=== PATIENT | male | born 1975 | race Caucasian/White ===

== ENCOUNTER 2017-09-01 19:35 | Emergency (ER) | payer MEDICARE, OTHER ==
[~2017-09-01] VITALS: Ht 170.2 cm; Wt 79.4 kg
[2017-09-01 19:55] VITALS: BP 153/110
== END 2017-09-01 22:30 | disposition left against medical advice (07) ==
LOC: EDBD 19:35 → ER 19:35
DX: F41.9 Anxiety disorder, unspecified (principal); Z53.21 Procedure and treatment not carried out due to patient leaving prior to being seen by health care provider

== ENCOUNTER 2017-11-29 23:00 | Emergency (ER) | payer OTHER, MEDICARE ==
[~2017-11-29] VITALS: Ht 170.2 cm; Wt 77.1 kg
[2017-11-30] MEDS ORDERED: SODIUM CHLORIDE 0.9% 1,000 ML IVB ONE (01:37)
[2017-11-30] MEDS ORDERED: PANTOPRAZOLE 40 MG/10 ML VIAL IV ONE (01:45)
[2017-11-30] MEDS ORDERED: KETOROLAC TROMETH 30 MG/ML 1ML VIAL IV ONE (01:45)
[2017-11-30] MEDS ORDERED: ONDANSETRON HCL 4 MG/2 ML VIAL IV ONE (01:45)
[2017-11-30] MEDS ORDERED: IOHEXOL 300 MG/ML 100ML BOTTLE IJ ONE (02:01)
[2017-11-30] MEDS ORDERED: LORazepam 2MG/ML-1ML VIAL IV ONE (02:45)
[2017-11-30 03:04] LABS: Basophils # (auto) 0.1 uL; Eosinophils # (auto) 0 uL; Hemoglobin 15.8 g/dL (13.5-17.5); Monocytes # (auto) 0.6 uL
[2017-11-30 03:06] LABS: Basophils % (auto) 0.9 % (0.0-2.0); Eosinophils % (auto) 0.1 % (0.0-7.0); Hematocrit 44.9 % (41.0-53.0); Lymphocytes # (auto) 0.9 uL; Lymphocytes % (auto) 9.7 % (10.0-50.0); Mean Corpuscular Hemoglobin 36.4 pg (28.0-32.0); Mean Corpuscular Hgb Conc. 35.1 g/dL (32.0-36.0); Mean Corpuscular Volume 103.6 fL (80.0-100.0); Monocytes % (auto) 6.4 % (0.0-12.0); Neutrophils # (auto) 7.6 uL; Neutrophils % (auto) 82.9 % (37.0-80.0); Nucleated Red Blood Cells % 0.1 %; Platelet Count (auto) 174 10^3/uL (140-450); Red Blood Cells 4.34 10^6/uL (4.5-5.90); Red Cell Distribution Width 14.7 % (11.8-14.3); White Blood Cell 9.2 10^3/uL (4.4-10.8)
[2017-11-30 03:12] LABS: INR 1.11 (0.9-1.15); Partial Thromboplastin Time 26.1 sec (23.78-33.04); Prothrombin Time 11.8 sec (9.27-12.13)
[2017-11-30 03:17] LABS: Albumin 3.3 g/dL (3.4-5.0); BUN/Creatinine Ratio 5.4; Calcium 9.2 mg/dL (8.5-10.1); Potassium 3.4 mmol/L (3.5-5.1)
[2017-11-30 03:19] LABS: Bilirubin, Total 2.1 mg/dL (0.2-1.0)
[2017-11-30 04:01] LABS: Lactic Acid w/Reflex 3.5 mmol/L (0.4-2.0)
[2017-11-30] MEDS ORDERED: SODIUM CHLORIDE 0.9% 1,000 ML IV ONE (04:15)
[2017-11-30 04:39] VITALS: BP 131/96
== END 2017-11-30 04:03 | disposition home or self-care (01) ==
LOC: EDBD 23:00 → ER 23:08
DX: K52.9 Noninfective gastroenteritis and colitis, unspecified (principal); E86.0 Dehydration; K21.9 Gastro-esophageal reflux disease without esophagitis; F17.210 Nicotine dependence, cigarettes, uncomplicated
CPT/HCPCS: 36415; 74177; 80053; 82150; 83605; 83690; 85025; 85610; 85730; 93005; 94761; 96361; 96374; 96375; 99285; C9113; J1885; J2060; J2405; Q9967